=== PATIENT | female | born 1980 | race Caucasian/White ===

== ENCOUNTER → 2023-11-30 | Emergency (ER) | payer SELFPAY ==
[~2023-11-30] MED LIST: dexAMETHasone 10 MG/ML VIAL ONE; hydrOXYzine HCL 25 MG TAB ONE
--- NOTE | 2023-11-30 09:07 | ER ---
Nurse's Notes [facility] Name: Mignon Roberson Age: 43 yrs Sex: Female : 1980 Arrival Date: 11/30/2023 Time: 08:53 Bed 13 Private MD: Diagnosis: Allergic contact dermatitis due to plants, except food Presentation: 11/30 09:04 Chief complaint: Worsening painful, itchy rash on face, torso, and arms after poison hb jonas exposure 10 days ago. Coronavirus screen: At this time, the client does not indicate any symptoms associated with coronavirus-19. Ebola Screen: No symptoms or risks identified at this time. Initial Sepsis Screen: Does the patient meet any 2 criteria? No. Patient's initial sepsis screen is negative. Does the patient have a suspected source of infection? No. Patient's initial sepsis screen is negative. Risk Assessment: Do you want to hurt yourself or someone else? Patient reports no desire to harm self or others. Onset of symptoms was November 20, 2023. 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 - Social history:: Smoking status: Patient denies any tobacco usage or history of. Screenin:35 [facility] ED Fall Risk Assessment (Adult) History of falling in the last 3 months, cp4 including since admission No falls in past 3 months (0 pts) Confusion or Disorientation No (0 pts) Intoxicated or Sedated No (0 pts) Impaired Gait No (0 pts) Mobility Assist Device Used No (0 pt) Altered Elimination No (0 pt) Score/Fall Risk Level 0 - 2 = Low Risk Oriented to surroundings, Maintained a safe environment, Educated pt \T\ family on fall prevention, incl call for assistance when getting out of bed, Assessed \T\ reinforced patient's understanding of fall precautions, Hourly rounding (assess needs \T\ fall precautionary measures) done. Abuse screen: Denies threats or abuse. Nutritional screening: No deficits noted. Tuberculosis screening: No symptoms or risk factors identified. Assessment: 09:35 General: Appears in no apparent distress. Behavior is calm, cooperative, appropriate cp4 for age. Pain: Denies pain. Vital Signs: 09:04 BP 131 / 75; Pulse 94; Resp 18; Temp 98.2; Pulse Ox 100% ; Pain 5/10; hb 09:48 BP 117 / 66; Pulse 84; Resp 16; Pulse Ox 99% ; cp4 09:04 Pain Scale: Adult hb ED Course: 08:55 Patient arrived in ED. ts1 08:55 Aviva Rodriguez FNP [facility] 08:55 Yao Camargo MD is Attending Physician. 7 09:05 Triage completed. hb 09:07 Arm band placed on. hb 09:27 Gracia Gao is Primary Nurse. cp4 09:35 Bed in low position. Call light in reach. Side rails up X 1. Provided Education on: cp4 allergic reaction. 09:35 No provider procedures requiring assistance completed. Patient did not have IV access cp4 during this emergency room visit. Administered Medications: 09:34 Drug: Dexamethasone IM 10 mg IM once Route: IM; Site: Ventrogluteal RIGHT; cp4 09:34 Drug: hydrOXYzine PO 50 mg PO once Route: PO; cp4 Medication: 09:35 VIS not applicable for this client. cp4 Outcome: 09:06 Discharge ordered by . [facility] 09:35 Discharged to home ambulatory, cp4 09:35 Condition: stable 09:35 Discharge instructions given to patient, Instructed on discharge instructions, follow up and referral plans. medication usage, Demonstrated understanding of instructions, follow-up care, medications, Prescriptions given X 2, 09:49 Patient left the ED. cp4 Signatures: Gianna Mathews RN RN Aviva Rodriguez FNP SKID WORKER [facility] Leann Tillman, [facility] ts1 Gracia Gao cp4
--- NOTE | 2023-11-30 09:07 | EDPHYS ---
Physician Documentation [facility] Name: Mignon Roberson Age: 43 yrs Sex: Female : 1980 Arrival Date: 11/30/2023 Time: 08:53 Bed 13 Private MD: ED Physician Yao Camargo HPI: 11/30 08:52 This 43 yrs old Female presents to ER via Ambulatory with complaints of Facial Swelling.jh7 08:52 Onset: The symptoms/episode began/occurred 10 day(s) ago. Associated signs and jh7 symptoms: The patient has no apparent associated signs or symptoms. 43-year-old female exposed to poison awilda 10 days ago. Currently complains of rash on her face and arms. 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 - Social history:: Smoking status: Patient denies any tobacco usage or history of. ROS: 08:52 Constitutional: Negative for fever, chills, and weight loss, Eyes: Negative for injury, jh7 pain, redness, and discharge, Neck: Negative for injury, pain, and swelling, Cardiovascular: Negative for chest pain, palpitations, and edema, Respiratory: Negative for shortness of breath, cough, wheezing, and pleuritic chest pain, Abdomen/GI: Negative for abdominal pain, nausea, vomiting, diarrhea, and constipation, MS/Extremity: Negative for injury and deformity, Neuro: Negative for headache, weakness, numbness, tingling, and seizure, 08:52 Skin: Positive for rash, Negative for cellulitis, 08:52 All other systems are negative, Exam: 08:52 Constitutional: This is a well developed, well nourished patient who is awake, alert, jh7 and in no acute distress. Head/Face: Normocephalic, atraumatic. Neck: Trachea midline, no thyromegaly or masses palpated, and no cervical lymphadenopathy. Supple, full range of motion without nuchal rigidity, or vertebral point tenderness. No Meningismus. Cardiovascular: Regular rate and rhythm with a normal S1 and S2. No gallops, murmurs, or rubs. Normal PMI, no JVD. No pulse deficits. Respiratory: Lungs have equal breath sounds bilaterally, clear to auscultation and percussion. No rales, rhonchi or wheezes noted. No increased work of breathing, no retractions or nasal flaring. Abdomen/GI: Soft, non-tender, with normal bowel sounds. No distension or tympany. No guarding or rebound. No evidence of tenderness throughout. MS/ Extremity: Pulses equal, no cyanosis. Neurovascular intact. Full, normal range of motion. Neuro: Awake and alert, GCS 15, oriented to person, place, time, and situation. Motor strength 5/5 in all extremities. Sensory grossly intact. Normal gait. 08:52 Skin: contact dermatitis, on the face and bilateral arms, Vital Signs: 09:04 BP 131 / 75; Pulse 94; Resp 18; Temp 98.2; Pulse Ox 100% ; Pain 5/10; hb 09:48 BP 117 / 66; Pulse 84; Resp 16; Pulse Ox 99% ; cp4 09:04 Pain Scale: Adult hb MDM: 08:55 Patient medically screened. [facility] 09:11 Differential diagnosis: Contact dermatitis, allergic dermatitis, impetigo, hives. Data [facility] reviewed: vital signs, nurses notes. I considered the following discharge prescriptions or medication management in the emergency department Medications were administered in the Emergency Department. See MAR. Counseling: I had a detailed discussion with the patient and/or guardian regarding the historical points, exam findings, and any diagnostic results supporting the discharge/admit diagnosis, to return to the emergency department if symptoms worsen or persist or if there are any questions or concerns that arise at home. Response to treatment: the patient's symptoms have mildly improved after treatment. Administered Medications: 09:34 Drug: Dexamethasone IM 10 mg IM once Route: IM; Site: Ventrogluteal RIGHT; cp4 09:34 Drug: hydrOXYzine PO 50 mg PO once Route: PO; cp4 Disposition: 09:55 Co-signature as Attending Physician, Yao Camargo MD I reviewed the patient's care rn provided by the Advanced Practice Provider and agree with the diagnosis and treatment plan. Disposition Summary: 11/30/23 09:06 Discharge Ordered Notes: Location: Home [facility] Problem: new [facility] Symptoms: are unchanged 7 Condition: Stable [facility] Diagnosis - Allergic contact dermatitis due to plants, except food 7 Followup: [facility] - With: Private Physician - When: 2 - 3 days - Reason: Recheck today's complaints Discharge Instructions: - Discharge Summary Sheet 7 - Poison Awilda Dermatitis [facility] Forms: - Medication Reconciliation Form 7 - Thank You Letter 7 - Patient Portal Instructions [facility] - Leadership Thank You Letter [facility] Prescriptions: - Hydroxyzine HCl 25 mg Oral Tablet - take 1 tablet ORAL route every 6 hours As needed; 30 tablet; Refills: 0, jh7 Product Selection Permitted - Prednisone 20 mg Oral Tablet - take 2 tablets ORAL route once daily for 5 days; 10 tablet; Refills: 0, Product [facility] Selection Permitted Signatures: Yao Camargo MD MD rn Gianna Mathews RN RN Aviva Rodriguez, SILVER STEWARD SILVER STEWARD [facility] Gracia Gao cp
[2023-11-30 11:52] VITALS: BP 117/66; TEMP 98.2; O2SAT 99
== END ==
LOC: ER 08:53
DX: L23.7 Allergic contact dermatitis due to plants, except food (principal); Z88.8 Allergy status to other drugs, medicaments and biological substances
CPT/HCPCS: 96372; 99284; J1100